=== PATIENT | female | born 1975 | race Caucasian/White ===

== ENCOUNTER 2016-07-09 12:51 | Emergency (ER) | payer BC | END 2016-07-09 15:30 | disposition home or self-care (01) | LOC: CED 12:51 → CFTX 12:51 | DX: M54.5 Low back pain (principal); G89.29 Other chronic pain; F17.200 Nicotine dependence, unspecified, uncomplicated; Z88.1 Allergy status to other antibiotic agents | CPT/HCPCS: 96372; 99283; J1885 ==

== ENCOUNTER 2016-07-11 00:29 | Emergency (ER) | payer BC | END 2016-07-11 04:20 | disposition home or self-care (01) | LOC: CED 00:29 | DX: G89.29 Other chronic pain (principal); M54.5 Low back pain; F17.200 Nicotine dependence, unspecified, uncomplicated; Z88.1 Allergy status to other antibiotic agents | CPT/HCPCS: 96372; 99283; J1885 ==

== ENCOUNTER 2016-07-21 13:50 | Emergency (ER) | payer BC ==
--- NOTE | ~2016-07-21 | CT4 ---
[facility] A Service of [facility] RADIOLOGY TEXT RESULTS PATIENT: NANCY ROBERTS LOCATION: [place] : [birth year] UNIT #: [id number] AGE: [address]: Sabrina Reyna APRN SEX: F ORDER DR: [id number] [facility]. [place], [place] [address] [id number] E MR#: [id number] Acc #: [id number] NAME: NANCY ROBERTS : 1975 SEX: F STUDY DATE/TIME: 07/21/2016 15:35 UNIT: CFTX ROOM: STUDY DESCRIPTION: CT Abd and Pelv Wo Cont Attending Physician: Sabrina Reyna A.P.R.N. Ordering Physician: Ed Jackson Schwarz M.D. Primary Care Physician: Primary Care Physician No MEDICAL IMAGING REPORT This report is preliminary unless electronic signature is present EXAM CT of the abdomen and pelvis without contrast media HISTORY Urinary frequency, urgency and low back pain and left abdominal pain for three days TECHNIQUE Axial imaging of the abdomen and pelvis was performed without contrast media. This CT exam was performed with one or more of the following radiation dose reduction techniques: automatic exposure control, adjustment of mA and/or kV according to patient size, and iterative reconstruction. FINDINGS Lung bases are clear. There is diffuse hepatic steatosis. Gallbladder is absent. There is a 1.3 cm right adrenal mass; it contains fat consistent with a benign adenoma. Both the right and left kidney are normal. There is no evidence of stones or hydronephrosis and no evidence of hydroureter. There are 2 calcifications in the pelvis, but these are not within the ureter. Uterus is midline. There are follicular cysts in the ovaries. Bladder is normal. Appendix is normal. No dilated or thickened loops of bowel are identified. IMPRESSION 1. Hepatic steatosis 2. Status post cholecystitis 3. 1.2 cm right adrenal adenoma 4. No acute findings in the abdomen or pelvis [facility] A Service of [facility] RADIOLOGY TEXT RESULTS PATIENT: NANCY ROBERTS LOCATION: [place] : [birth year] UNIT #: [id number] AGE: [address]: Sabrina Reyna APRN SEX: F ORDER DR: Dictated by... Ryne Kevin M.D. THIS IS AN ELECTRONICALLY VERIFIED REPORT Ryne Kevin M.D. at 07/23/2016 7:18 AM HARLEEN/verónica TD: 07/21/2016 17:19 JOB #: [id number] MEDICAL IMAGING REPORT Page 1 of 1 COPY
[2016-07-21 14:16] LABS: URINE SOURCE CLEAN CATCH
[2016-07-21 14:23] LABS: URINE APPEARANCE CLEAR; URINE BILIRUBIN NEG (NEG); URINE BLOOD NEG (NEG); URINE COLOR YELLOW; URINE GLUCOSE >1000 MG/DL (NEG); URINE KETONE NEG (NEG); URINE LEUKOCYTE ESTERASE NEG (NEG); URINE NITRATE NEG (NEG); URINE PROTEIN NEG (NEG); URINE UROBILINOGEN 0.2 MG/DL (NEG)
[2016-07-21 14:50] LABS: CULTURE INDICATED? NO
[2016-07-21 15:06] LABS: BASOPHIL# 0.1 X10e3 (0-0.3); BASOPHIL% 0.7 % (0-2.5); EOSINOPHIL# 0.2 X10e3 (0-0.7); EOSINOPHIL% 1.7 % (0.0-7.0); HEMATOCRIT 49.1 % (35.0-45.0); HEMOGLOBIN 16.5 gm/dL (12.0-16.0); LYMPHOCYTE# 2.3 X10e3 (1.0-3.5); LYMPHOCYTE% 22.8 % (17.0-45.0); MEAN CELL VOLUME 88.4 FL (83-96); MEAN CORPUSCULAR HEMOGLOBIN 29.7 PG (28-34); MEAN CORPUSCULAR HGB CONC 33.6 g/dL (30-36); MEAN PLATELET VOLUME 8.6 FL (6.5-11.5); MONOCYTE# 0.4 X10e3 (0-1.0); MONOCYTE% 4.5 % (3.0-12.0); NEUTROPHIL# 6.9 X10e3 (1.5-7.1); NEUTROPHIL% 70.3 % (40-75); PLATELET COUNT 168 X10e3 (140-420); RED BLOOD COUNT 5.56 X10e (3.90-5.30); WHITE BLOOD COUNT 9.9 X10e3 (4.0-10.5)
[2016-07-21 15:15] LABS: DIFF IND NO
[2016-07-21 15:35] LABS: ALBUMIN SERUM 4.3 g/dL (3.5-5.0); ALKALINE PHOSPHATASE 63 U/L (32-92); ALT (SGPT) 30 U/L (10-40); AMYLASE 20 U/L (0-46); AST (SGOT) 43 U/L (10-42); BILIRUBIN,TOTAL 0.3 mg/dL (0.2-2.0); BLOOD UREA NITROGEN 10 mg/dL (9-23); BUN/CREATININE RATIO 14.28; CALCIUM SERUM 9.3 mg/dL (8.4-10.2); CARBON DIOXIDE 25 mmol/L (22-31); CHLORIDE 101 mmol/L (100-111); CREATININE SERUM 0.7 mg/dL (0.6-1.4); GLOM FILT RATE Estimated 109.1 mL/min (>60); GLUCOSE FASTING 232 mg/dL (70-110); LIPASE 23 U/L (22-51); POTASSIUM 4.2 mmol/L (3.5-5.1); PROTEIN TOTAL SERUM 7.5 g/dL (6.0-8.3); SODIUM 134 mmol/L (135-145)
[2016-07-21 15:37] LABS: BILIRUBIN, DIRECT <0.1 mg/dL (0.0-0.2); BILIRUBIN,INDIRECT 0.2 mg/dL (0.0-0.9)
== END 2016-07-21 16:33 | disposition home or self-care (01) ==
LOC: CED 13:50 → CFTX 13:50
PROVIDERS: Emergency Medicine; Nurse Practitioner
DX: R10.9 Unspecified abdominal pain (principal); R30.0 Dysuria; E11.9 Type 2 diabetes mellitus without complications; F17.210 Nicotine dependence, cigarettes, uncomplicated; Z79.899 Other long term (current) drug therapy; Z98.890 Other specified postprocedural states; Z88.1 Allergy status to other antibiotic agents; Z79.84 Long term (current) use of oral hypoglycemic drugs; Z79.82 Long term (current) use of aspirin
CPT/HCPCS: 36415; 74176; 80048; 80076; 81003; 82150; 82947; 83690; 84703; 85025; 96361; 96374; 99284; J1885